=== PATIENT | female | born 1970 | race Caucasian/White ===

== ENCOUNTER 2019-10-11 09:15 | Outpatient (CLI) | payer BC ==
[2019-10-11 10:18] LABS: ALANINE AMINOTRANSFERASE 22 U/L (12-78); ANION GAP 3 mmol/L (5-15); CALCIUM 9.3 mg/dL (8.5-10.1); CHLORIDE 108 mmol/L (98-107); CREATININE 0.74 mg/dL (0.55-1.02)
[2019-10-11 10:21] LABS: ALKALINE PHOSPHATASE 105 U/L (45-117); BILIRUBIN,TOTAL 0.4 mg/dL (0.2-1.0)
[2019-10-11] MEDS ORDERED: OMEP20TA62 PO (11:33)
[2019-10-11] MEDS ORDERED: DIPH-526 PO (11:33)
[2019-10-11] MEDS ORDERED: LOSA25TA25 PO (11:33)
[2019-10-11] MEDS ORDERED: TRAZ50TA66 PO (11:33)
== END 2019-10-11 23:59 | disposition home or self-care (01) ==
LOC: STAR 09:15
PROVIDERS: ATTEND Internal Medicine Geriatric Medicine
DX: Z01.818 Encounter for other preprocedural examination (principal)
CPT/HCPCS: 36415; 80053

== ENCOUNTER 2019-10-15 06:38 | Day surgery (SDC) | payer BC ==
[~2019-10-15] VITALS: Ht 165.1 cm; Wt 68.0 kg
[~2019-10-15 06:38] MED LIST: DIPH-526 PO; LOSA25TA25 PO; OMEP20TA62 PO; TRAZ50TA66 PO
[2019-10-15] MEDS ORDERED: LACTATED RINGERS 1,000 ML IV SCH (07:33)
[2019-10-15] MEDS ORDERED: CHLORHEXIDINE 15 ML UDC MM ONE (08:00)
[2019-10-15] MEDS ORDERED: FENTANYL PF 100 MCG/2ML IV PRN (10:00)
[2019-10-15] MEDS ORDERED: HYDROmorphone 1 MG/ML, 1ML INJ IVPush PRN (10:00)
[2019-10-15] MEDS ORDERED: ACETAMINOPHEN 325 MG TABLET PO PRN (10:00)
[2019-10-15] MEDS ORDERED: OXYcodone 5 MG/5 ML ORAL.SOL UDC PO PRN (10:00)
[2019-10-15] MEDS ORDERED: PROMETHAZINE 25 MG/ML, 1ML IVPush PRN (10:00)
[2019-10-15] MEDS ORDERED: ONDANSETRON 2MG/ML, 2ML IVPush PRN (10:00)
[2019-10-15] MEDS ORDERED: SUCCINYLCHOLINE 20 MG/ML, 10ML ONE (10:02)
[2019-10-15] MEDS ORDERED: PROPOFOL 10 MG/ML, 100ML IV ONE (10:02)
== END 2019-10-15 12:05 | disposition home or self-care (01) ==
LOC: OUT 06:38
PROVIDERS: ATTEND Internal Medicine Geriatric Medicine
DX: K85.90 Acute pancreatitis without necrosis or infection, unspecified (principal); Z11.59 Encounter for screening for other viral diseases; K21.9 Gastro-esophageal reflux disease without esophagitis; Q45.3 Other congenital malformations of pancreas and pancreatic duct; I10 Essential (primary) hypertension; G47.00 Insomnia, unspecified; Z79.899 Other long term (current) drug therapy; Z87.891 Personal history of nicotine dependence; Z90.49 Acquired absence of other specified parts of digestive tract; Z82.49 Family history of ischemic heart disease and other diseases of the circulatory system
CPT/HCPCS: 36415; 43239; 43259; 87635; 88305; J0330; J2704; J7120